=== PATIENT | male | born 1955 ===

== ENCOUNTER 2023-06-16 20:20 | Inpatient (IN) | payer BC, MEDICAID, SELFPAY ==
--- NOTE | ~2023-06-16 | CT_ITS ---
EXAMINATION: CT brain wo con DATE: 06/16/2023 22:40 INDICATION: Syncope . TECHNIQUE: Computed tomography (CT) of the head was performed without intravenous contrast. The mA wa s adjusted according to patient size. Iterative reconstruction technique was employed. The dose-lengt h product was 681.00 mGy-cm. COMPARISON: 06/11/2023. FINDINGS: No acute intracranial hemorrhage or extra-axial fluid collection. No hydrocephalus, mass, or herniation. No acute ischemic infarct. Unremarkable dural venous sinus attenuation. No acute osseous abnormality. Unfused posterior C1 arch. Periapical lucencies at the bilateral plastic frame inserter ior maxillary molars. The aerated spaces are clear. Moderate atrophy and chronic white matter change. Atherosclerotic intracranial calcification. Old lef t cerebellar infarct. Right frontal horn periventricular encephalomalacia. Focal old left basal gangl ia and thalamic lacunar infarcts. Persistent right thalamic hematoma which extends into the right lat eral periventricular white matter, with suggestion of developing peripheral calcification. 3 mm ACOM aneurysm, grossly stable given interval difference in technique. IMPRESSION: No acute intracranial process. Persistent right thalamic hematoma with increasing clot lysis and the suggestion of surrounding perip heral calcification, unchanged in size since the initial bleed. 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 Reviewed, dictated and finalized at location K. IMPRESSION: No acute intracranial process. Persistent right thalamic hematoma with increasing clot lysis and the suggestio n of surrounding peripheral calcification, unchanged in size since the initial bleed. 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
--- NOTE | ~2023-06-16 | XR_ITS ---
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 RESULT: Lines, tubes, and devices: None. Lungs and pleura: Subsegmental patchy opacities in the left lung base. Mild left costophrenic angle blunting. Cardiomediastinal silhouette: Stable. Other: No acute osseous or upper abdominal finding. IMPRESSION: Subsegmental left basilar atelectasis/infection. Aspiration could also be considered, given the clini yris history. Possible small left pleural effusion. Reviewed, dictated and finalized at location K. IMPRESSION: Subsegmental left basilar atelectasis/infection. Aspiration could also be consi dered, given the clinical history. Possible small left pleural effusion.
[2023-06-16 20:21] VITALS: BP 117/65; PULSE 76; RESP 16; TEMP 36.2; O2SAT 97
[2023-06-16 21:18] VITALS: BP 100/74; PULSE 69; RESP 12; O2SAT 96
[2023-06-16 22:25] VITALS: BP 125/84; PULSE 72; RESP 18; O2SAT 94
--- NOTE | 2023-06-16 22:26 | ECG_ITS ---
Measurements Intervals [place] Rate: 74 P: 50 [place]: 212 QRS: -17 QRSD: 98 T: -14 QT: 376 QTc: 419 Interpretive Statements SINUS RHYTHM WITH FIRST DEGREE AV BLOCK DELAYED PRECORDIAL R/S TRANSITION VOLTAGE CRITERIA FOR LVH INFERIOR INFARCT, AGE INDETERMINATE BASELINE ARTIFACT- I, II, III, AVR, AVL, AVF, V1-V6 ABNORMAL ECG NO PREVIOUS ECG AVAILABLE FOR COMPARISON Electronically Signed On 06-17-2023 6:34:51 CDT by Berny Navarro D.O.
[2023-06-16 22:59] LABS: Basophils Percent Auto 0.4 % (0.2-1.2); Eosinophils Absolute Auto 0.1 K/mm3 (0-0.3); Eosinophils Percent Auto 0.6 % (0-4.4); Hematocrit 44.7 % (42.0-52.0); Hemoglobin 14.9 g/dL (14.0-18.0); Immature Granulocyte Absolute 0.03 K/mm3 (0.00-0.031); Immature Granulocyte Percent A 0.3 % (0-0.5); Lymphocytes Absolute Auto 2.08 K/mm3 (0.9-3.2); Lymphocytes Percent Auto 23.1 % (18.3-44.2); Mean Corpuscular HGB Conc 33.3 g/dl (32-36); Mean Corpuscular Hemoglobin 25.2 pg (26-34); Mean Corpuscular Volume 75.5 fl (80-100); Mean Platelet Volume 9.5 fl (7.4-10.4); Monocytes Absolute Auto 0.6 K/mm3 (0.1-0.6); Neutrophils Absolute Auto 6.2 K/mm3 (1.3-6.7); Neutrophils Percent Auto 68.6 % (45.5-73.1); Platelet Count Result 281 k/mm3 (150-375); Red Blood Count 5.92 M/mm3 (4.6-6.20); Red Cell Distribution Width 13.6 % (11.5-14.5)
--- NOTE | 2023-06-16 23:11 | ED.GENADULT ---
HPI - General Adult General Chief complaint: Recheck/Abnormal Lab/Rx Stated complaint: found unresponsive, A/Ox3 now Time Seen by Provider: 06/16/23 22:15 History of Present Illness HPI narrative: Patient is a 67-year-old gentleman who presents emergency department with chief complaint of syncopal episode. Patient reports he was in the bathroom on the toilet having a bowel movement after he had been given medications to help him have a bowel movement the patient states that he had a large bowel movement and then became unresponsive. The patient proved the staff at the facility noticed that he was not very responsive and then subsequently has returned to his baseline. The patient currently has no complaints Related Data Home Medications Medication Instructions Recorded Confirmed amlodipine 10 mg tablet 10 mg PO DAILY 06/05/23 06/05/23 atorvastatin 40 mg tablet 40 mg PO DAILY 06/05/23 06/05/23 carvedilol 25 mg tablet 25 mg PO BID 06/05/23 06/05/23 insulin glargine 100 unit/mL 10 unit subcut QPM 06/05/23 06/05/23 subcutaneous solution insulin lispro 100 unit/mL 0 - 4 sliding scale dose subcut QPM 06/05/23 06/05/23 subcutaneous solution (Admelog U-100 Insulin lispro) insulin lispro 100 unit/mL 1 - 5 sliding scale dose subcut 06/05/23 06/05/23 subcutaneous solution (Admelog TIDWM U-100 Insulin lispro) lisinopril 40 mg tablet 40 mg PO DAILY 06/05/23 06/05/23 quetiapine 25 mg tablet 25 mg PO HS 06/05/23 06/05/23 Allergies Allergy/AdvReac Type Severity Reaction Status Date / Time No Known Allergies Allergy Verified 06/05/23 17:35 Review of Systems Review of Systems: A 10 system review of systems was completed on the patient and is negative except for what is stated in the HPI. Nursing and ancillary documentation was reviewed. [facility] Social History Social History Smoking status: Never smoker Second hand tobacco smoke exposure: No Alcohol intake: never Substance use: never Do You Feel Safe in your Home?: Yes Lack of Transportation: No Lack of Food: Never True Current Housing: I Have Housing Concerned About Future Housing: No Difficulty Paying Gas/Electric Bills: No Difficulty Paying for Meds: No Currently Unemployed: No Education: High School Diploma/GED Difficulty w/ Childcare or Family Care: No Spiritual care concerns: No Exam Narrative: GENERAL: Well-appearing, well-nourished, and in no acute distress. HEAD: Normocephalic, atraumatic. EYES: PERRLA and EOMI. ENT: Nares clear, no rhinorrhea or epistaxis. Mucous membranes moist. NECK: Supple. CHEST: Clear to auscultation. No respiratory distress. HEART: Regular rate and rhythm. No murmur heard. Normal peripheral pulses. ABDOMEN: Soft, nontender, nondistended, normal active bowel sounds. EXTREMITIES: Normal range of motion. No edema. SKIN: Warm, dry, no rash. NEURO: No focal deficits. Alert and oriented x3. Patient at baseline since prior hemorrhagic stroke PSYCH: Normal mood and affect.. Course Vital Signs Vital signs: Vital Signs Temperature 36.2 C L 06/16/23 20:21 Pulse Rate 76 06/16/23 20:21 Respiratory Rate 16 06/16/23 20:21 Blood Pressure 117/65 06/16/23 20:21 Pulse Oximetry 97 06/16/23 20:21 Oxygen Delivery Room Air 06/16/23 20:21 Temperature 36.2 C L 06/16/23 20:21 Pulse Rate 69 06/17/23 00:23 Respiratory Rate 18 06/17/23 00:23 Blood Pressure 126/87 06/17/23 00:23 Pulse Oximetry 95 06/17/23 00:23 Oxygen Delivery Room Air 06/16/23 20:21 Medical Decision Making [facility] Narrative Medical decision making narrative: Differential diagnosis includes CVA, vasovagal syncope, electrolyte abnormality CT head showed no acute changes No acute intracranial process. Persistent right thalamic hematoma with increasing clot lysis and the suggestion of surrounding peripheral calcification, unchanged
[2023-06-16 23:17] LABS: Bacteria Urine 4+ /hpf; Non Pathogenic Casts 0-2; RBC Urine >100 /hpf (0-2); Squamous Epithelial Cell Urine Few /hpf (Few); WBC Urine >100 /hpf (0-3)
[2023-06-16 23:18] LABS: Lactic Acid Reflex 1.2 mmol/L (0.7-2.0)
[2023-06-16 23:26] LABS: Alanine Aminotransferase 63 U/L (6-50); Albumin Level 4.1 g/dL (3.5-5.1); Alkaline Phosphatase 95 U/L (38-126); Anion Gap 8 mmol/L (8-16); Aspartate Amino Transferase 52 U/L (17-59); Bilirubin,Total 0.8 mg/dL (0.2-1.3); Blood Urea Nitrogen 26 mg/dL (9-20); Calcium 9.4 mg/dL (8.4-10.2); Carbon Dioxide 25 mmol/L (22-30); Chloride 105 mmol/L (98-107); Estimated CRCL calculation 45 ml/min; Estimated Glomerular Filt Rate 38; Glucose 163 mg/dL (65-110); Magnesium 2.4 mg/dL (1.6-2.3); Potassium 4.8 mmol/L (3.4-5.0); Sodium 138 mmol/L (137-145)
[2023-06-16 23:33] LABS: Appearance Urine Turbid (Clear); Bilirubin Urine 1+ (Negative); Blood Urine 3+ (Negative); Color Urine Orange (Yellow); Glucose Urine UA Negative (Negative); Ketones Urine Trace mg/dL (Negative); Leukocyte Esterase Ur 3+ LEU/UL (Negative); Nitrate Urine Negative (Negative); Protein Urine 3+ mg/dL (Negative); Specific Grav Ur 1.017 (1.001-1.035)
[2023-06-16 23:35] LABS: Troponin I < 0.012 ng/mL (0.000-0.034)
[2023-06-16] MEDS: SODIUM CHLORIDE 0.9% IV 1,000 ML 999 ML IV CONT (23:42)
[2023-06-16 23:43] LABS: Add Urine Microscopic? YES
[2023-06-17] VITALS (8 sets, daily range): BP systolic 117–132; BP diastolic 65–87; PULSE 69–80; RESP 14–19; TEMP 36.1–37.2; O2SAT 95–99; BMI 32.8
--- NOTE | 2023-06-17 01:29 | PM.IMHP ---
H&P: HPI History of Present Illness Date/Time: 06/17/23 01:29 Chief Complaint: Syncopal episode. This is a 54-year-old male patient with a past medical history of chronic hypertension hyperlipidemia type 2 diabetes mellitus who came to the emergency room after sustaining a syncopal episode. Patient reported that he was in the bathroom on the toilet having a bowel movement after he had been given medication to help him have a bowel movement the patient states that he had a large bowel movement and then became unresponsive. The patient subsequently returned to his baseline. Patient is awake alert not in acute distress. Denies any fever chills dizziness lightheadedness no blood within the chest pains no shortness of breath no cough no nausea no vomiting no diarrhea no dysuria no muscle and joint pains. Vital signs in the emergency room was stable. Cbc was mainly in range. CMP was significant for BUN of 26 creatinine 1.80. Glucose 163. Magnesium 2.4. ALT 63. Troponin was within normal range. Urinalysis was significant for urinary tract infection. CT head showed no acute intracranial process. Persistent right thalamic hematoma with increasing clot lysis and suggestion of surrounding peripheral calcification unchanged in size since the initial bleed. Grossly stable 3 mm ACOM aneurysm. EKG showed sinus rhythm with first-degree AV block. Chest x-ray showed subsegmental left basilar atelectasis/infection. Aspiration could also be considered. Possible left pleural effusion. Patient was given IV ceftriaxone and IV fluids in the emergency room. Review of Systems Review of Systems: A 12 point review of system is done and is only positive what is dictated in the history of present illness. [facility] Social History Social History Smoking status: Never smoker Second hand tobacco smoke exposure: No Alcohol intake: never Substance use: never Do You Feel Safe in your Home?: Yes Lack of Transportation: No Lack of Food: Never True Current Housing: I Have Housing Concerned About Future Housing: No Difficulty Paying Gas/Electric Bills: No Difficulty Paying for Meds: No Currently Unemployed: No Education: High School Diploma/GED Difficulty w/ Childcare or Family Care: No Spiritual care concerns: No Meds Home Medications and Allergies Home Medications Medication Instructions Recorded Confirmed Type amlodipine 10 mg tablet 10 mg PO DAILY 06/05/23 06/17/23 History atorvastatin 40 mg tablet 40 mg PO DAILY 06/05/23 06/17/23 History carvedilol 25 mg tablet 25 mg PO BID 06/05/23 06/17/23 History insulin glargine 100 unit/mL 10 unit subcut QPM 06/05/23 06/17/23 History subcutaneous solution insulin lispro 100 unit/mL 0 - 4 sliding scale dose subcut QPM 06/05/23 06/17/23 History subcutaneous solution (Admelog U-100 Insulin lispro) insulin lispro 100 unit/mL 1 - 5 sliding scale dose subcut 06/05/23 06/17/23 History subcutaneous solution (Admelog TIDWM U-100 Insulin lispro) lisinopril 40 mg tablet 40 mg PO DAILY 06/05/23 06/17/23 History quetiapine 25 mg tablet 25 mg PO HS 06/05/23 06/17/23 History Allergies Allergy/AdvReac Type Severity Reaction Status Date / Time No Known Allergies Allergy Verified 06/05/23 17:35 Vital Signs Vital Signs - 24 hr 06/16/23 20:21 06/16/23 21:18 06/16/23 22:25 Temperature 97.2 F L Pulse Rate 76 69 72 Respiratory Rate 16 12 18 Blood Pressure 117/65 100/74 125/84 Pulse Oximetry 97 96 94 Oxygen Delivery Room Air 06/17/23 00:23 Temperature Pulse Rate 69 Respiratory Rate 18 Blood Pressure 126/87 Pulse Oximetry 95 Oxygen Delivery Exam Const: Other: Awake alert not in acute distress. HENMT: Other: Normocephalic atraumatic. Neck: Other: Supple no thyromegaly. Resp: Other: Clear to auscultation bilaterally. Cardio: Other: S1-S2 regular
[2023-06-17] MEDS: SODIUM CHLORIDE 0.9% IV 1,000 ML 125 ML IV CONT ×2 (02:21→13:45)
[2023-06-17 07:35] LABS: Glucose Point of Care 146 mg/dl (65-105)
[2023-06-17] MEDS: amLODIPine BESYLATE 5 MG TABLET 10 MG PO (08:25)
[2023-06-17] MEDS: carvediloL 25 MG TABLET PO ×2 (08:25→18:12)
[2023-06-17] MEDS: ATORVASTATIN 40 MG TABLET PO (08:26)
[2023-06-17 12:03] LABS: Glucose Point of Care 145 mg/dl (65-105)
--- NOTE | 2023-06-17 14:44 | PCPTNOTE ---
attempted PT evaluation 14:40, pt is unable to keep his eyes open and shows little response to questions and multiple attempts to wake, will attempt again at a later time
--- NOTE | 2023-06-17 15:25 | PM.IMPN ---
Progress Note: A&P Assessment and Plan (1) Acute UTI: Code(s): N39.0 - Urinary tract infection, site not specified Status: Acute (2) Gait abnormality: Code(s): R26.9 - Unspecified abnormalities of gait and mobility Status: Acute (3) Debilitated: Code(s): R53.81 - Other malaise Status: Acute (4) Type 2 diabetes mellitus with hyperglycemia: Code(s): E11.65 - Type 2 diabetes mellitus with hyperglycemia Status: Acute (5) History of alcohol use: Code(s): Z87.898 - Personal history of other specified conditions Status: Acute (6) DM type 2 (diabetes mellitus, type 2): Code(s): E11.9 - Type 2 diabetes mellitus without complications Status: Acute (7) Leukocytosis: Code(s): D72.829 - Elevated white blood cell count, unspecified Status: Acute (8) DALILA (acute kidney injury): Code(s): N17.9 - Acute kidney failure, unspecified Status: Acute (9) Agitation: Code(s): R45.1 - Restlessness and agitation Status: Acute (10) Hypertensive emergency: Code(s): I16.1 - Hypertensive emergency Status: Acute Plan Admit patient to medical unit under full inpatient status Urinalysis was done which shows finding consistent with UTI Follow-up on urine and blood cultures Patient started on IV Rocephin in the ER which we will continue on the floor Patient was given 1 L of IV hydration in the ER Patient started on IV at 125 cc an hour on the floor which I will cut down to 75 cc/hour Strict input and output monitoring Patient came from [facility] and was scheduled to be discharged home later during this week PT/OT evaluation ordered Pharmacological DVT prophylaxis is contraindicated secondary to history of intracranial bleeding DC planning once patient is stable and back to baseline ? Patient seen and examined at bedside during my morning rounds ? Collaborated with patient's nurse at the bedside in detail and addressed all concerns ? Labs, electrolytes, radiology, investigations and test results reviewed ? Consult/Nursing/Ancilliary notes on the chart reviewed and appreciated ? Spoke with patient/family at the bedside and answered all the questions that they had Repeat labs in a.m. Electrolyte replacement as per protocol. Patient will be monitored very closely on the floor. Further recommendations as per the hospital course. Time Spent With Patient Time with patient: 15 - 25 minutes Subjective Date/time seen: 06/17/23 15:25 Interval history: Patient sitting on bedside having food during my morning rounds. Feels tired and fatigued yet a little better since admission Review of Systems Review of Systems: 14 systems were reviewed with pertinent positives and negatives per HPI. Except as documented in the HPI/progress notes, all other systems were reviewed and are negative. All systems reviewed & are unremarkable except as noted in HPI and below Exam Narrative: PHYSICAL EXAMINATION: Vital signs: Please see the chart General physical exam: Obese patient, appears tired and fatigued, complains of generalized weakness Head/eyes: Atraumatic, EOMI, PERRLA ENT: Moist mucous membranes, nasal passages clear Neck: Supple, full range of motion, trachea midline CVS: S1 + S2, regular rate and rhythm, no murmurs Respiratory: Bilaterally fair air entry in both lung santoyo, mild B/L crackles, symmetric chest expansion, no distress Abdomen: Soft, non-tender, bowel sounds +ve, no organomegaly Extremities: No clubbing, no cyanosis, no edema, no calf tenderness Musculoskeletal: Moves all, decreased range of motion, no muscle spasms Skin: Warm, dry, no jaundice, no cyanosis Neurological: Awake, alert, oriented x 3, cranial nerves II-XII intact, no focal neurological deficits Psychiatric: Normal mood, non suicidal Objective Data Vital Signs Vital Signs: Vital Signs - 24 hr 06/16/23 20:21 06/16/23 21:18 06/16/23 22:25 Temperature 36.2 C
[2023-06-17] MEDS: QUEtiapine FUMARATE 25 MG TABLET PO (20:19)
[2023-06-17 20:55] LABS: Glucose Point of Care 147 mg/dl (65-105)
[2023-06-18] MEDS: SODIUM CHLORIDE 0.9% IV 1,000 ML 125 ML IV CONT ×2 (00:05→08:19)
[2023-06-18 05:10] VITALS: BP 156/60; PULSE 78; RESP 18; TEMP 37.4; O2SAT 97
[2023-06-18 07:23] LABS: Basophils Absolute Auto 0.1 K/mm3 (0.0-0.1); Basophils Percent Auto 0.6 % (0.2-1.2); Eosinophils Absolute Auto 0.1 K/mm3 (0-0.3); Eosinophils Percent Auto 1.1 % (0-4.4); Hematocrit 39.2 % (42.0-52.0); Hemoglobin 12.7 g/dL (14.0-18.0); Immature Granulocyte Absolute 0.02 K/mm3 (0.00-0.031); Immature Granulocyte Percent A 0.2 % (0-0.5); Lymphocytes Absolute Auto 1.98 K/mm3 (0.9-3.2); Lymphocytes Percent Auto 23.9 % (18.3-44.2); Mean Corpuscular HGB Conc 32.4 g/dl (32-36); Mean Platelet Volume 9.5 fl (7.4-10.4); Monocytes Absolute Auto 0.7 K/mm3 (0.1-0.6); Monocytes Percent Auto 8.9 % (2.6-8.5); Neutrophils Absolute Auto 5.4 K/mm3 (1.3-6.7); Neutrophils Percent Auto 65.3 % (45.5-73.1); Platelet Count Result 199 k/mm3 (150-375); Red Blood Count 5.09 M/mm3 (4.6-6.20); Red Cell Distribution Width 13.6 % (11.5-14.5); White Blood Count 8.3 K/mm3 (4.5-10.0)
[2023-06-18 07:25] LABS: Glucose Point of Care 104 mg/dl (65-105)
[2023-06-18 07:33] LABS: Anion Gap 10 mmol/L (8-16); Blood Urea Nitrogen 28 mg/dL (9-20); Calcium 8.5 mg/dL (8.4-10.2); Carbon Dioxide 19 mmol/L (22-30); Chloride 112 mmol/L (98-107); Estimated CRCL calculation 42 ml/min; Estimated Glomerular Filt Rate 38; Glucose 111 mg/dL (65-110); Phosphorus 3.5 mg/dL (2.5-4.5); Potassium 3.9 mmol/L (3.4-5.0); Sodium 141 mmol/L (137-145)
[2023-06-18 08:00] VITALS: PULSE 76; O2SAT 95
--- NOTE | 2023-06-18 08:44 | PCPTNOTE ---
Attempted to see for physial therapy evaluation. Pt made eye contact with therapist upon entering room and was alert, eating breakfast. Pt did not respond verbally to any questions including what do you prefer to be called . When asked and encourage to go for a walk pt made no acknowledgement of request, no attempts to move, or any verbal responses. Pt could not be seen for evaluation at this time as he was not responding to therapist. RN and tech updated, they state this is similar behavior for him compared to earlier this morning, he did answer one question from the RN earlier. Will continue to follow.
[2023-06-18 09:26] VITALS: PULSE 76
[2023-06-18] MEDS: ATORVASTATIN 40 MG TABLET PO (09:26)
[2023-06-18] MEDS: carvediloL 25 MG TABLET PO ×2 (09:26→17:18)
[2023-06-18] MEDS: amLODIPine BESYLATE 5 MG TABLET 10 MG PO (09:26)
[2023-06-18 11:31] LABS: Glucose Point of Care 176 mg/dl (65-105)
[2023-06-18 13:58] VITALS: BP 114/64; PULSE 72; RESP 22; TEMP 37.1; O2SAT 95
[2023-06-18 14:45] LABS: Glucose Point of Care 123 mg/dl (65-105)
[2023-06-18 14:45] LABS: Glucose Point of Care 145 mg/dl (65-105)
[2023-06-18 16:32] LABS: Glucose Point of Care 137 mg/dl (65-105)
--- NOTE | 2023-06-18 16:56 | PM.IMPN ---
Progress Note: A&P Assessment and Plan (1) Acute UTI: Code(s): N39.0 - Urinary tract infection, site not specified Status: Acute (2) Gait abnormality: Code(s): R26.9 - Unspecified abnormalities of gait and mobility Status: Acute (3) Debilitated: Code(s): R53.81 - Other malaise Status: Acute (4) Type 2 diabetes mellitus with hyperglycemia: Code(s): E11.65 - Type 2 diabetes mellitus with hyperglycemia Status: Acute (5) History of alcohol use: Code(s): Z87.898 - Personal history of other specified conditions Status: Acute (6) DM type 2 (diabetes mellitus, type 2): Code(s): E11.9 - Type 2 diabetes mellitus without complications Status: Acute (7) Leukocytosis: Code(s): D72.829 - Elevated white blood cell count, unspecified Status: Acute (8) DALILA (acute kidney injury): Code(s): N17.9 - Acute kidney failure, unspecified Status: Acute (9) Agitation: Code(s): R45.1 - Restlessness and agitation Status: Acute (10) Hypertensive emergency: Code(s): I16.1 - Hypertensive emergency Status: Acute Plan Admit patient to medical unit under full inpatient status Urinalysis was done which shows finding consistent with UTI Follow-up on urine and blood cultures Urine cultures are growing Klebsiella pneumoniae with the pending sensitivities Patient started on IV Rocephin in the ER which we will continue on the floor Patient was given 1 L of IV hydration in the ER Patient started on IV at 125 cc an hour on the floor which I cut down to 75 cc/hour Patient creatinine level is still at 1.8 Gentle IV hydration ordered with normal saline at 75 cc/hour Monitor renal functions closely Strict input and output monitoring Patient came from [facility] and was scheduled to be discharged home later during this week PT/OT evaluation ordered Care coordination working with the [facility] regarding patient's DC planning Pharmacological DVT prophylaxis is contraindicated secondary to history of intracranial bleeding DC planning in a.m. back to [facility] or home with home healthcare ? Patient seen and examined at bedside during my morning rounds ? Collaborated with patient's nurse at the bedside in detail and addressed all concerns ? Labs, electrolytes, radiology, investigations and test results reviewed ? Consult/Nursing/Ancilliary notes on the chart reviewed and appreciated ? Spoke with patient/family at the bedside and answered all the questions that they had Repeat labs in a.m. Electrolyte replacement as per protocol. Patient will be monitored very closely on the floor. Further recommendations as per the hospital course. Time Spent With Patient Time with patient: 15 - 25 minutes Subjective Date/time seen: 06/18/23 16:56 Interval history: Patient lying in bed during my morning rounds. Feeling a little better today. Awaiting PT OT evaluation and recommendations Review of Systems Review of Systems: 14 systems were reviewed with pertinent positives and negatives per HPI. Except as documented in the HPI/progress notes, all other systems were reviewed and are negative. All systems reviewed & are unremarkable except as noted in HPI and below Exam Narrative: PHYSICAL EXAMINATION: Vital signs: Please see the chart General physical exam: Obese patient, appears tired and fatigued, complains of generalized weakness Head/eyes: Atraumatic, EOMI, PERRLA ENT: Moist mucous membranes, nasal passages clear Neck: Supple, full range of motion, trachea midline CVS: S1 + S2, regular rate and rhythm, no murmurs Respiratory: Bilaterally fair air entry in both lung santoyo, mild B/L crackles, symmetric chest expansion, no distress Abdomen: Soft, non-tender, bowel sounds +ve, no organomegaly Extremities: No clubbing, no cyanosis, no edema, no calf tenderness Musculoskeletal: Moves all, decreased range of motion, no muscle spasms Skin: Warm, dry, no jaundice, no cya
[2023-06-18 17:18] VITALS: PULSE 78
[2023-06-18] MEDS: SODIUM CHLORIDE 0.9% IV 1,000 ML 75 ML IV CONT (20:42)
[2023-06-18] MEDS: QUEtiapine FUMARATE 25 MG TABLET PO (20:42)
[2023-06-18 20:55] LABS: Glucose Point of Care 133 mg/dl (65-105)
[2023-06-18 21:22] VITALS: BP 148/79; PULSE 72; RESP 12; TEMP 36.9; O2SAT 97
[2023-06-19 05:34] VITALS: BP 174/88; PULSE 85; RESP 14; TEMP 36.8; O2SAT 97
[2023-06-19 07:19] LABS: Glucose Point of Care 124 mg/dl (65-105)
[2023-06-19 07:41] LABS: Anion Gap 9 mmol/L (8-16); Blood Urea Nitrogen 25 mg/dL (9-20); Calcium 8.9 mg/dL (8.4-10.2); Carbon Dioxide 19 mmol/L (22-30); Chloride 112 mmol/L (98-107); Estimated CRCL calculation 54 ml/min; Estimated Glomerular Filt Rate 50; Glucose 128 mg/dL (65-110); Potassium 4.2 mmol/L (3.4-5.0); Sodium 140 mmol/L (137-145)
[2023-06-19 07:51] LABS: Basophils Absolute Auto 0.1 K/mm3 (0.0-0.1); Basophils Percent Auto 0.5 % (0.2-1.2); Eosinophils Absolute Auto 0.1 K/mm3 (0-0.3); Eosinophils Percent Auto 0.5 % (0-4.4); Hematocrit 38.6 % (42.0-52.0); Hemoglobin 12.8 g/dL (14.0-18.0); Immature Granulocyte Absolute 0.04 K/mm3 (0.00-0.031); Immature Granulocyte Percent A 0.4 % (0-0.5); Lymphocytes Absolute Auto 1.84 K/mm3 (0.9-3.2); Lymphocytes Percent Auto 18.6 % (18.3-44.2); Mean Corpuscular HGB Conc 33.2 g/dl (32-36); Mean Corpuscular Hemoglobin 25.4 pg (26-34); Mean Corpuscular Volume 76.7 fl (80-100); Mean Platelet Volume 9.7 fl (7.4-10.4); Monocytes Absolute Auto 0.9 K/mm3 (0.1-0.6); Monocytes Percent Auto 9.1 % (2.6-8.5); Neutrophils Percent Auto 70.9 % (45.5-73.1); Platelet Count Result 170 k/mm3 (150-375); Red Blood Count 5.03 M/mm3 (4.6-6.20); White Blood Count 9.9 K/mm3 (4.5-10.0)
[2023-06-19 08:25] VITALS: PULSE 115
[2023-06-19] MEDS: carvediloL 25 MG TABLET PO ×2 (08:25→16:26)
[2023-06-19] MEDS: amLODIPine BESYLATE 5 MG TABLET 10 MG PO (08:26)
[2023-06-19] MEDS: ATORVASTATIN 40 MG TABLET PO (08:26)
[2023-06-19] MEDS: SODIUM BICARBONATE TAB 650 MG TABLET PO ×2 (09:17→16:26)
[2023-06-19 12:44] LABS: Glucose Point of Care 142 mg/dl (65-105)
[2023-06-19] MEDS: SODIUM CHLORIDE 0.9% IV 1,000 ML 75 ML IV CONT ×2 (13:12→21:10)
[2023-06-19 14:00] VITALS: BP 145/91; PULSE 84; RESP 22; TEMP 37; O2SAT 97
[2023-06-19 15:13] VITALS: O2SAT 96
[2023-06-19 16:26] VITALS: PULSE 94
[2023-06-19 16:32] LABS: Glucose Point of Care 155 mg/dl (65-105)
--- NOTE | 2023-06-19 18:13 | PM.IMPN ---
Progress Note: A&P Assessment and Plan (1) Acute UTI: Code(s): N39.0 - Urinary tract infection, site not specified Status: Acute (2) Gait abnormality: Code(s): R26.9 - Unspecified abnormalities of gait and mobility Status: Acute (3) Debilitated: Code(s): R53.81 - Other malaise Status: Acute (4) Type 2 diabetes mellitus with hyperglycemia: Code(s): E11.65 - Type 2 diabetes mellitus with hyperglycemia Status: Acute (5) History of alcohol use: Code(s): Z87.898 - Personal history of other specified conditions Status: Acute (6) DM type 2 (diabetes mellitus, type 2): Code(s): E11.9 - Type 2 diabetes mellitus without complications Status: Acute (7) Leukocytosis: Code(s): D72.829 - Elevated white blood cell count, unspecified Status: Acute (8) DALILA (acute kidney injury): Code(s): N17.9 - Acute kidney failure, unspecified Status: Acute (9) Agitation: Code(s): R45.1 - Restlessness and agitation Status: Acute (10) Hypertensive emergency: Code(s): I16.1 - Hypertensive emergency Status: Acute Plan Admit patient to medical unit under full inpatient status Urinalysis was done which shows finding consistent with UTI Follow-up on urine and blood cultures Urine cultures are growing Klebsiella pneumoniae with good sensitivity to all major antibiotics except cefazolin Patient started on IV Rocephin in the ER which has received for 3 days on the floor DC IV Rocephin, transitioned to oral Augmentin for 4 days to complete 7 days course of antibiotics Continue with gentle IV hydration at 75 cc/hour Patient creatinine level is slowly downtrending and is at 1.4 today Monitor renal functions closely Strict input and output monitoring Patient came from [facility] and was scheduled to be discharged home later during this week PT/OT evaluation ordered and recommending transfer back to [facility] Care coordination working with the insurance company and [facility] regarding patient's DC planning back to [facility] Pharmacological DVT prophylaxis is contraindicated secondary to history of intracranial bleeding ? Patient seen and examined at bedside during my morning rounds ? Collaborated with patient's nurse at the bedside in detail and addressed all concerns ? Labs, electrolytes, radiology, investigations and test results reviewed ? Consult/Nursing/Ancilliary notes on the chart reviewed and appreciated ? Spoke with patient/family at the bedside and answered all the questions that they had Repeat labs in a.m. Electrolyte replacement as per protocol. Patient will be monitored very closely on the floor. Further recommendations as per the hospital course. Time Spent With Patient Time with patient: 15 - 25 minutes Subjective Date/time seen: 06/19/23 18:13 Interval history: Patient seen and evaluated bedside. Tolerating antibiotics. Awaiting [facility] approval by insurance. Review of Systems Review of Systems: 14 systems were reviewed with pertinent positives and negatives per HPI. Except as documented in the HPI/progress notes, all other systems were reviewed and are negative. All systems reviewed & are unremarkable except as noted in HPI and below Exam Narrative: PHYSICAL EXAMINATION: Vital signs: Please see the chart General physical exam: Obese patient, appears tired and fatigued, complains of generalized weakness Head/eyes: Atraumatic, EOMI, PERRLA ENT: Moist mucous membranes, nasal passages clear Neck: Supple, full range of motion, trachea midline CVS: S1 + S2, regular rate and rhythm, no murmurs Respiratory: Bilaterally fair air entry in both lung santoyo, mild B/L crackles, symmetric chest expansion, no distress Abdomen: Soft, non-tender, bowel sounds +ve, no organomegaly Extremities: No clubbing, no cyanosis, no edema, no calf tenderness Musculoskeletal: Moves all, decreased range of motion, no muscle spasms Skin: Warm, dry, no jaundice, no
[2023-06-19 20:09] VITALS: BP 137/83; PULSE 82; RESP 16; TEMP 36.7; O2SAT 97
[2023-06-19 20:33] LABS: Glucose Point of Care 145 mg/dl (65-105)
[2023-06-19] MEDS: ACETAMINOPHEN 325 MG TABLET 650 MG PO (21:08)
[2023-06-19] MEDS: QUEtiapine FUMARATE 25 MG TABLET PO (21:08)
[2023-06-19] MEDS: AMOXICILLIN/CLAVULANATE K 875-125 MG TAB 1 TABLET PO (21:08)
[2023-06-20 04:58] VITALS: BP 133/70; PULSE 89; RESP 18; TEMP 36.9; O2SAT 95
[2023-06-20 07:03] LABS: Basophils Absolute Auto 0.1 K/mm3 (0.0-0.1); Basophils Percent Auto 0.5 % (0.2-1.2); Eosinophils Absolute Auto 0.1 K/mm3 (0-0.3); Eosinophils Percent Auto 0.6 % (0-4.4); Hematocrit 39.4 % (42.0-52.0); Hemoglobin 13.2 g/dL (14.0-18.0); Immature Granulocyte Absolute 0.03 K/mm3 (0.00-0.031); Immature Granulocyte Percent A 0.3 % (0-0.5); Lymphocytes Percent Auto 21.7 % (18.3-44.2); Mean Corpuscular HGB Conc 33.5 g/dl (32-36); Mean Corpuscular Hemoglobin 25.5 pg (26-34); Mean Corpuscular Volume 76.1 fl (80-100); Mean Platelet Volume 10.1 fl (7.4-10.4); Monocytes Absolute Auto 0.9 K/mm3 (0.1-0.6); Monocytes Percent Auto 8.5 % (2.6-8.5); Neutrophils Absolute Auto 7.3 K/mm3 (1.3-6.7); Neutrophils Percent Auto 68.4 % (45.5-73.1); Platelet Count Result 149 k/mm3 (150-375); Red Blood Count 5.18 M/mm3 (4.6-6.20); Red Cell Distribution Width 13.3 % (11.5-14.5); White Blood Count 10.6 K/mm3 (4.5-10.0)
[2023-06-20 07:05] LABS: Anion Gap 9 mmol/L (8-16); Blood Urea Nitrogen 26 mg/dL (9-20); Calcium 8.7 mg/dL (8.4-10.2); Carbon Dioxide 19 mmol/L (22-30); Chloride 112 mmol/L (98-107); Estimated CRCL calculation 58 ml/min; Estimated Glomerular Filt Rate 55; Glucose 131 mg/dL (65-110); Potassium 3.9 mmol/L (3.4-5.0); Sodium 140 mmol/L (137-145)
[2023-06-20 07:24] LABS: Glucose Point of Care 126 mg/dl (65-105)
[2023-06-20 09:21] VITALS: PULSE 68
[2023-06-20] MEDS: AMOXICILLIN/CLAVULANATE K 875-125 MG TAB 1 TABLET PO (09:21)
[2023-06-20] MEDS: carvediloL 25 MG TABLET PO (09:21)
[2023-06-20] MEDS: SODIUM BICARBONATE TAB 650 MG TABLET PO (09:21)
[2023-06-20] MEDS: ATORVASTATIN 40 MG TABLET PO (09:21)
[2023-06-20] MEDS: amLODIPine BESYLATE 5 MG TABLET 10 MG PO (09:21)
[2023-06-20 11:44] LABS: Glucose Point of Care 133 mg/dl (65-105)
[2023-06-20 14:00] VITALS: BP 91/53; PULSE 86; RESP 22; TEMP 36.6; O2SAT 97
--- NOTE | 2023-06-20 15:45 | PM.DS ---
DS: Admitting Diagnosis Discharge Date 06/20/2023: Admitting Diagnosis (1) Acute UTI: ?Code(s): N39.0 - Urinary tract infection, site not specified ?Status:?Acute ?Assessment and Plan: Urinary tract infection.? Follow cultures.? Continue ceftriaxone 1 g IV Q 24 hours.? Type 2 diabetes mellitus.? Sliding scale insulin correction. Chronic hypertension.? Resume home medications. Hyperlipidemia.? Continue statins. DS: Discharge Diagnosis Discharge Diagnosis (1) Acute UTI: Code(s): N39.0 - Urinary tract infection, site not specified Status: Acute (2) Gait abnormality: Code(s): R26.9 - Unspecified abnormalities of gait and mobility Status: Acute (3) Debilitated: Code(s): R53.81 - Other malaise Status: Acute (4) Type 2 diabetes mellitus with hyperglycemia: Code(s): E11.65 - Type 2 diabetes mellitus with hyperglycemia Status: Acute (5) DM type 2 (diabetes mellitus, type 2): Code(s): E11.9 - Type 2 diabetes mellitus without complications Status: Acute (6) DALILA (acute kidney injury): Code(s): N17.9 - Acute kidney failure, unspecified Status: Acute (7) Agitation: Code(s): R45.1 - Restlessness and agitation Status: Acute (8) History of alcohol use: Code(s): Z87.898 - Personal history of other specified conditions Status: Acute DS: Summary Hospital Course Reason for hospitalization: Patient sent to the ER for evaluation from [facility] with syncopal episode Hospital Course: H&P: HPI History of Present Illness Date/Time: 06/17/23? 01:29 Chief Complaint: Syncopal episode. This is a 54-year-old male patient with a past medical history of chronic hypertension hyperlipidemia type 2 diabetes mellitus who came to the emergency room after sustaining a syncopal episode.? Patient reported that he was in the bathroom on the toilet having a bowel movement after he had been given medication to help him have a bowel movement the patient states that he had a large bowel movement and then became unresponsive.? The patient subsequently returned to his baseline.? Patient is awake alert not in acute distress.? Denies any fever chills dizziness lightheadedness no blood within the chest pains no shortness of breath no cough no nausea no vomiting no diarrhea no dysuria no muscle and joint pains.? Vital signs in the emergency room was stable.? Cbc was mainly in range.? CMP was significant for BUN of 26 creatinine 1.80.? Glucose 163.? Magnesium 2.4.? ALT 63.? Troponin was within normal range.? Urinalysis was significant for urinary tract infection.? CT head showed no acute intracranial process.? Persistent right thalamic hematoma with increasing clot lysis and suggestion of surrounding peripheral calcification unchanged in size since the initial bleed.? Grossly stable 3 mm ACOM aneurysm.? EKG showed sinus rhythm with first-degree AV block.? Chest x-ray showed subsegmental left basilar atelectasis/infection.? Aspiration could also be considered.? Possible left pleural effusion.? Patient was given IV ceftriaxone and IV fluids in the emergency room. HOSPITAL COURSE ... Date of Admission - 06/19/2023: Admit patient to medical unit under full inpatient status Urinalysis was done which shows finding consistent with UTI Follow-up on urine and blood cultures Urine cultures are growing Klebsiella pneumoniae with good sensitivity to all major antibiotics except cefazolin Patient started on IV Rocephin in the ER which has received for 3 days on the floor DC IV Rocephin, transitioned to oral Augmentin for 4 days to complete 7 days course of antibiotics Continue with gentle IV hydration at 75 cc/hour Patient creatinine level is slowly downtrending and is at 1.4 today Monitor renal functions closely Strict input and output monitoring Patient came from [facility] and was scheduled to be discharged home later during this week PT/OT evaluation ordered and recommending transfer back
--- NOTE | 2023-06-20 16:35 | PC.NURSE ---
HH papers faxed, d/c papers signed, at bedside. IV out. All belongings with patient.
== END 2023-06-20 16:35 | disposition home health service (06) | DRG 690 ==
LOC: ANHED 06-17 00:26 → ANH3MEDSUR 06-17 01:09
PROVIDERS: Admitting Provider Internal Medicine Infectious Disease; Emergency Provider Emergency Medicine; Visit Provider Family Medicine
DX: N39.0 Urinary tract infection, site not specified (principal); N17.9 Acute kidney failure, unspecified; I16.1 Hypertensive emergency; I10 Essential (primary) hypertension; I67.1 Cerebral aneurysm, nonruptured; E78.5 Hyperlipidemia, unspecified; E11.9 Type 2 diabetes mellitus without complications; B96.1 Klebsiella pneumoniae [K. pneumoniae] as the cause of diseases classified elsewhere; R26.9 Unspecified abnormalities of gait and mobility; Z79.4 Long term (current) use of insulin
CPT/HCPCS: 36415; 70450; 71045; 80048; 80053; 82948; 83605; 83735; 84100; 84484; 85025; 87077; 87086; 87088; 87186; 93005; 96361; 96365; 96366; 97110; 97116; 97161; 97165; 97530; 97535; 99285; A9270; G0378; J0696; J7030